=== PATIENT | female | born 1980 | race Caucasian/White ===

== ENCOUNTER 2020-07-07 09:45 | Emergency (ER) | payer OTHER ==
[~2020-07-07] VITALS: Ht 157.5 cm; Wt 98.0 kg
[2020-07-07] MEDS ORDERED: COLESTID1 GM PO (10:22)
[2020-07-07] MEDS ORDERED: SYNTHROID175 MCG PO (10:23)
[2020-07-07] MEDS ORDERED: ONDANSETRON HCL4 M2 PO (10:23)
[2020-07-07] MEDS ORDERED: ESOMEPRAZOLE MA20 MG PO (10:24)
[2020-07-07 10:39] LABS: RDW 13.7 % (10.5-14.5)
[2020-07-07 10:41] LABS: ABSOLUTE NEUTROPHILS 4.1 thou/uL (1.4-8.2); BASOPHILS 1.2 % (0.0-2.0); EOSINOPHILS 2.1 % (0.0-3.0); HEMATOCRIT 42.7 % (37.0-47.0); HEMOGLOBIN 14.2 gm/dL (12.0-15.0); LYMPHOCYTES 31.6 % (24.0-44.0); MCH 30.2 pg (26.0-34.0); MCHC 33.3 g/dL (28.0-37.0); MCV 90.9 fL (80.0-100.0); PLATELET COUNT 312 thou/uL (150-400); POLYS 56.1 % (36.0-66.0); RBC 4.69 mil/uL (4.20-5.00); WBC 7.3 thou/uL (4.0-11.0)
[2020-07-07 13:18] LABS: CALCIUM 9.4 mg/dL (8.5-10.1); CREATININE 0.9 mg/dL (0.6-1.0); POTASSIUM 3.9 mmol/L (3.5-5.1)
[2020-07-07 13:24] LABS: ALBUMIN 3.7 g/dL (3.4-5.0); TOTAL BILIRUBIN 0.5 mg/dL (0.2-1.0); TOTAL PROTEIN 7.3 g/dL (6.4-8.2)
[2020-07-07] MEDS ORDERED: TOPAMAX 25 MG T25 MG PO (18:04)
[2020-07-07 18:27] VITALS: BP 132/86
--- NOTE | 2020-07-08 12:07 | HC ---
[facility] [place] [address] CONSULTATION Name: IVY PATEL Room #: DEP XOCHITL Rooney#: [id number] Admission: 07/07/20 Attend Phys: Discharge: 07/07/20 Date of : 80 Report #: [id number] THIS REPORT FOR: cc: Radha Mcgill NP, Jessica NP Khosla, Parveen K. MD ~ DATE OF SERVICE: 07/07/2020 HISTORY OF PRESENT ILLNESS: This 40-year-old female patient was in the Emergency Room and I got a call from my answering service that they cannot get hold of the neurologist regional refrigerated cdl truck driver, Dr. Haley and if I can help. I called the Emergency Room physician, Dr. Dangelo. She indicated the patient was here. 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 They were trying to get hold of Dr. Haley, but they could not get hold of him. She was asking whether the patient should be kept here for admission or should be transferred to another facility since we do not have any neurosurgeon here. My feeling was that it is unlikely any neurosurgeon will accept her at this stage because her CT was normal and I recommended that we do an MRI of the brain with and without contrast, MRA of the head as well as a carotid Doppler as the first test and then decide about further management. She indicated that they will not do an MRI on the recommendation of Emergency Room physician at the moment and I discussed with her that the procedure was that we will try to get approval from senior vice president and chief information officer if you have discussed the case with radiologist and she should try to get that and see what happens. She was going to order the MRI of the brain, MRA of the head and a carotid Doppler and then decide whether the patient needs transfer or can be kept here. In the meantime, I was able to get hold of Dr. Haley, the neurologist regional refrigerated cdl truck driver and he just indicated that he was on the phone and he was going to call Emergency Room and take care of this patient. I called Dr. Dangelo again and told her that Dr. Haley will be calling out because I was able to get hold of him and she can coordinate further neurological care with him. She indicated that Dr. Haley has already called her and they have discussed the case, and she will coordinate further neurological care with him. Because of that, I did not do any official consult on this patient. <ELECTRONICALLY SIGNED> By: Josh Cedillo MD 07/08/20 [id number] [id number] Josh Cedillo MD /nt
== END 2020-07-07 18:27 | disposition home or self-care (01) ==
LOC: ER 09:45
PROVIDERS: Emergency Medicine
DX: G43.109 Migraine with aura, not intractable, without status migrainosus (principal); E03.9 Hypothyroidism, unspecified; Z90.710 Acquired absence of both cervix and uterus; Z79.899 Other long term (current) drug therapy; Z88.0 Allergy status to penicillin